=== PATIENT | male | born 1990 | race Caucasian/White ===

== ENCOUNTER → 2020-09-03 | Outpatient (CLI) | payer OTHER | END | disposition home or self-care (01) | LOC: CFH 06:42 | PROVIDERS: ATTEND Internal Medicine Cardiovascular Disease | DX: I37.1 Nonrheumatic pulmonary valve insufficiency (principal); R94.31 Abnormal electrocardiogram [ECG] [EKG]; R00.2 Palpitations | CPT/HCPCS: 78452; 93017; 93306; A9502 ==